=== PATIENT | female | born 1985 | race Two or more races ===

== ENCOUNTER 2024-06-29 14:46 | Emergency (ER) | payer OTHER, MEDICAID, SELFPAY ==
--- NOTE | ~2024-06-29 | CT_ITS ---
CLINICAL HISTORY: neck pain CT cervical spine without contrast Comparison: None Findings: Mild multilevel anterolisthesis, degenerative. No fracture. No severe central spinal canal stenosis. No epidural hematoma. Normal thickness of the prevertebral soft tissues. The lung apices are clear. Impression: No acute findings. This document has been electronically signed by: Rosi Dean MD on 06/29/2024 17:36:59
--- NOTE | ~2024-06-29 | CT_ITS ---
CLINICAL HISTORY: headache x2 mo CT head without contrast Comparison: None Findings: No acute hemorrhage. Trace basal ganglia calcifications. No extra-axial fluid collection. No hydrocephalus, mass-effect or herniation. Macias-white differentiation is maintained. White matter is within normal limits for age. No acute orbital pathology. No acute soft tissue abnormality. No fracture. The visualized paranasal sinuses are predominantly clear. The mastoid air cells are clear. Impression: No acute findings. This document has been electronically signed by: Rosi Dean MD on 06/29/2024 17:39:34
[2024-06-29 14:51] VITALS: BP 135/73; PULSE 92; RESP 19; TEMP 36.6; O2SAT 99; BMI 29.0
--- NOTE | 2024-06-29 14:56 | ECG_ITS ---
Test Reason : L ARM PAIN Blood Pressure : */* mmHG Vent. Rate : 86 BPM Atrial Rate : 86 BPM P-R Int : 128 ms QRS Dur : 86 ms QT Int : 348 ms P-R-T Axes : 52 13 35 degrees QTcB Int : 416 ms Normal sinus rhythm Normal ECG No previous ECGs available Referred By: Nena Warner Electronically Signed By: ARIANNA MURILLO
--- NOTE | 2024-06-29 14:57 | ED.GENADULT ---
HPI - General Adult General Chief complaint: General Medical Stated complaint: Cp, headache, weakness Time Seen by Provider: 06/29/24 18:34 Source: patient Mode of arrival: ambulatory Limitations: no limitations History of Present Illness ED Provider: HPI narrative: Patient is from [place] with increased stress working more than 15 hours a day complaining of poor sleep increased anxiety multiple other complaints with headache neck pain back pain patient has had labs and CT scan of the head and C-spine done prior to my evaluation which were normal Related Data Previous Rx's ?Medication ?Instructions ?Recorded alprazolam 0.5 mg tablet 0.5 mg PO BEDTIME PRN 06/29/24 anxiety/sleep #30 tabs ferrous sulfate 325 mg (65 mg 325 mg PO DAILY #90 tabs 06/29/24 iron) tablet fluoxetine 10 mg capsule (Prozac) 10 mg PO DAILY #30 caps 06/29/24 tramadol 50 mg tablet 50 mg PO Q8-10H PRN pain #30 tabs 06/29/24 Allergies Allergy/AdvReac Type Severity Reaction Status Date / Time cefprozil [From Cefzil] Allergy Rash Verified 06/29/24 14:55 Review of Systems Review of Systems: Yes all other systems are reviewed and are negative [facility] Social History Social History Advance Directives: No Advance Directives Information Provided: No Do you have a plan to hurt others: No Plan Physical Exam ED Vital Signs: Vital Signs - 24 hr 06/29/24 14:51 06/29/24 19:35 Temperature 98 F 98 F Pulse Rate 92 92 Respiratory Rate 19 19 Blood Pressure 135/73 135/73 Pulse Oximetry 99 99 Oxygen Delivery Method Room Air Room Air BMI result Body Mass Index 29.0 Appearance: Alert. Oriented X3. No acute distress. Anxious Eyes: PERRLA, No Nystagmus ENT: Pharynx normal. Oral Mucosa moist Neck: Normal inspection. Neck supple. Upper back tenderness no midline tenderness CVS: Normal heart rate and rhythm. Pulses normal. Respiratory: No respiratory distress. Equal air entry bilateral, no wheezing/rales/rhonchi Abdomen: Soft and nontender. Bowel sounds are present, no mass palpable, no CVA tenderness Skin: Skin warm and dry. Normal skin color. Normal skin turgor. Extremities: No lower extremity edema. No calf tenderness Neuro: Oriented X 3. No motor deficit. No sensory deficit.No cerebellar signs , cranial nerves II-XII intact Course Course Course Narrative: This is a Rapid Medical Examination (RME) performed by Miguel Warner PA-C in triage. Full HPI, ROS, assessment and treatment plan per primary provider in the Main ED. 39 yo female hx of gastric sleeve here for eval of headache x2 months. pain radiates into neck and down her left arm. assoc intermittent N/V. has not been medically evaluated for this yet as she only recently established health insurance. Plan: labs, ekg, imaging Medications Administered Discontinued Medications Generic Name Dose Route Start Last Admin Trade Name Freq PRN Reason Stop Dose Admin Lorazepam 1 mg 06/29/24 19:03 06/29/24 19:17 Lorazepam 1 Mg Tablet PO 06/29/24 19:04 1 mg ONCE ONE Administration Tramadol HCl 50 mg 06/29/24 19:03 06/29/24 19:16 Tramadol Hcl 50 Mg Tablet PO 06/29/24 19:04 50 mg ONCE ONE Administration Medical Decision Making Medical Decision Making [facility] Narrative: Patient's anxiety depression sleep sleeping only 1-2 hours per night likely has fibromyalgia multiple other complaints will start on Prozac anxiety and depression, alprazolam for sleep and anxiety and will give a iron tablets and Tramadol for pain Lab Data [facility] Lab Attestation statement: I reviewed the patient's lab results. 06/29/24 15:12 06/29/24 15:12 Labs: Lab Results 06/29/24 Range/Units 15:12 WBC 3.2 L (4.8-10.8) X10*3/uL RBC 5.02 (4.20-5.50) X10*6/uL Hgb 10.7 L (12.0-16.0) g/dl Hct 33.1 L (37.0-47.0) % MCV 65.9 L (80.0-98.0) fL MCH 21.3 L (27.0-33.0) pg MCHC 32.3 (31.0-35.0) g/dl RDW 16.5 H (11.0-16.0) % Plt Count 299 (160-400) X10*3/uL MPV 10.0 (9.4-12.3) fL Immature Gran % (Auto) 0.6 H (0.0-0.4) % Neut % (Auto) 41.3 L (45-73) % Lymph % (Auto) 40.0 (20-40) % [place] % (Auto) 14.4 H (2-11) % Eos % (Auto) 2.8 (0-4) % Baso % (Auto) 0.9 (0-2) % Lymph # (Auto) 1.3 (1.2-4.9) X10*3/uL [place] # (Auto) 0.5 (0.1-1.2) X10*3/uL Eos # (Auto) 0.1 (0.0-0.4) X10*3/uL Baso # (Auto) 0.0 (0.0-0.2) X10*3/uL Abs Immat Gran (auto) 0.02 (0.00-0.03) X10*3/uL Absolute Neuts (auto) 1.3 L (2.0-8.3) x10*3/uL Absolute Nucleated RBC 0.000 (0.0-0.012) X10*3/uL Nucleated RBC % (auto) 0.0 (0.0-0.2) /100WBC Sodium 136 (135-145) mmol/L Potassium 3.8 (3.3-5.1) mmol/L Chloride 107 (96-108) mmol/L Carbon Dioxide 22 (22-29) mmol/L Anion Gap 11 L (12-20) BUN 12 (9-16) mg/dL Creatinine 0.69 (0.5-1.4) mg/dL Estim Creat Clear Calc 114.8 Estimated GFR > 60 Random Glucose 87 (60-115) mg/dL Calcium 8.9 (8.4-10.2) mg/dL Magnesium 2.0 (1.6-2.6) mg/dL Total Bilirubin 0.4 (0.0-1.0) mg/dL AST 26 (5-31) U/L ALT 16 (0-31) U/L Alkaline Phosphatase 43 (39-117) U/L Troponin I High Sens < 2.7 (<3.5-17.0) ng/L Total Protein 7.5 (6.5-8.0) g/dL Albumin 4.0 (3.5-5.0) g/dL Beta HCG, Quant < 2 mIU/mL Influenza Type A (PCR) NEGATIVE (Negative) Influenza Type B (PCR) NEGATIVE (Negative) RSV RNA Qual (PCR) NEGATIVE (Negative) SARS-CoV-2 RNA (RT-PCR) NEGATIVE (Negative) Independent Interpretation I performed an independent interpretation of an: CT Scan Radiology Impression Discussion of test interpretation with radiology: I have reviewed the radiologist's reading. Radiologist Impression: NAD Discharge Plan Discharge Clinical Impression: Anxiety, Fibromyalgia Patient Disposition: Home, Self-Care Instructions: Fibromyalgia (ED), Anxiety (ED) Additional Instructions: Likely have fibromyalgia and increased anxiety/depression from lack of sleep and stress Decreased caffeine intake Take medication as prescribed and follow up with your PCP Prescriptions: New fluoxetine [Prozac] 10 mg capsule 10 mg PO DAILY Qty: 30 0RF alprazolam 0.5 mg tablet 0.5 mg PO BEDTIME PRN (Reason: anxiety/sleep) Qty: 30 0RF tramadol 50 mg tablet 50 mg PO Q8-10H PRN (Reason: pain) Qty: 30 0RF ferrous sulfate 325 mg (65 mg iron) tablet 325 mg PO DAILY Qty: 90 3RF Interventions: ED Discharge Assessment Last Done: 06/29/24 19:35 Discharge Date/Time: 06/29/24 19:36 Print Language: Scottish
[2024-06-29 15:18] LABS: MANUAL DIFF FLAG NO
[2024-06-29 15:24] LABS: Basophils Percent Auto 0.9 % (0-2); Eosinophils Absolute Auto 0.1 X10*3/uL (0.0-0.4); Eosinophils Percent Auto 2.8 % (0-4); Hematocrit 33.1 % (37.0-47.0); Hemoglobin 10.7 g/dl (12.0-16.0); Imm Gran Abs Auto 0.02 X10*3/uL (0.00-0.03); Imm Gran Pct Auto 0.6 % (0.0-0.4); Lymphocytes Absolute Auto 1.3 X10*3/uL (1.2-4.9); Mean Corpuscular HGB Conc 32.3 g/dl (31.0-35.0); Mean Corpuscular Hemoglobin 21.3 pg (27.0-33.0); Mean Corpuscular Volume 65.9 fL (80.0-98.0); Monocytes Absolute Auto 0.5 X10*3/uL (0.1-1.2); Monocytes Percent Auto 14.4 % (2-11); Neutrophils Absolute Auto 1.3 x10*3/uL (2.0-8.3); Neutrophils Percent Auto 41.3 % (45-73); Platelet Count 299 X10*3/uL (160-400); Red Blood Count 5.02 X10*6/uL (4.20-5.50); Red Cell Distribution Width 16.5 % (11.0-16.0); White Blood Count 3.2 X10*3/uL (4.8-10.8)
[2024-06-29 15:41] LABS: HCG Quantitative < 2 mIU/mL; Troponin-I High Sensitivity < 2.7 ng/L (<3.5-17.0)
[2024-06-29 15:48] LABS: Alanine Aminotransferase 16 U/L (0-31); Anion Gap 11 (12-20); Aspartate Amino Transferase 26 U/L (5-31); Bilirubin Total 0.4 mg/dL (0.0-1.0); Blood Urea Nitrogen 12 mg/dL (9-16); Calcium 8.9 mg/dL (8.4-10.2); Carbon Dioxide 22 mmol/L (22-29); Chloride 107 mmol/L (96-108); Creatinine Clr Calc Pharmacy 114.8; Estimated Glomerular Filt Rate > 60; Glucose Random 87 mg/dL (60-115); Potassium 3.8 mmol/L (3.3-5.1); Sodium 136 mmol/L (135-145); Total Protein 7.5 g/dL (6.5-8.0)
[2024-06-29 16:02] LABS: Influenza A PCR NEGATIVE (Negative); Influenza B PCR NEGATIVE (Negative); Resp Syncy Virus RNA Qual PCR NEGATIVE (Negative); SARS COV2 PCR INHOUSE NEGATIVE (Negative)
[2024-06-29 16:10] LABS: Alkaline Phosphatase 43 U/L (39-117)
[2024-06-29] MEDS: traMADoL HCL 50 MG TABLET PO (19:16)
[2024-06-29] MEDS: LORazepam 1 MG TABLET PO (19:17)
[2024-06-29 19:35] VITALS: BP 135/73; PULSE 92; RESP 19; TEMP 36.6; O2SAT 99
== END 2024-06-29 19:36 | disposition home or self-care (01) ==
PROVIDERS: Physician Assistant Medical; Emergency Provider Internal Medicine
DX: M79.7 Fibromyalgia (principal); F41.9 Anxiety disorder, unspecified; R51.9 Headache, unspecified; Z03.818 Encounter for observation for suspected exposure to other biological agents ruled out
CPT/HCPCS: 0241U; 36415; 70450; 72125; 80053; 83735; 84484; 84702; 85025; 93005; 99284

== ENCOUNTER → 2024-06-29 14:56 | Outpatient (BNV) | payer OTHER, MEDICAID, SELFPAY | PROVIDERS: Emergency Provider Internal Medicine; Visit Provider Internal Medicine | DX: M79.602 Pain in left arm (principal) | CPT/HCPCS: 93010 ==

== ENCOUNTER → 2024-06-29 14:57 | Outpatient (BNV) | payer SELFPAY | PROVIDERS: Visit Provider Radiology Diagnostic Radiology | DX: M54.2 Cervicalgia (principal); R51.9 Headache, unspecified | CPT/HCPCS: 70450; 72125 ==

== ENCOUNTER 2024-08-10 21:14 | Emergency (ER) | payer OTHER, MEDICAID, SELFPAY ==
[2024-08-10 21:16] VITALS: BP 125/80; PULSE 85; RESP 18; TEMP 36.9; O2SAT 100; BMI 28.1
--- NOTE | 2024-08-10 21:33 | ED_ITS ---
HPI - Allergic Reaction General Chief complaint: Allergic Reaction Stated complaint: allergic reaction on her face Time Seen by Provider: 08/10/24 21:29 Source: patient Mode of arrival: ambulatory Limitations: no limitations History of Present Illness ED Provider: KATHI MONTGOMERY narrative: 39 yo female with no sig PMH has hx of allergies to oral abx. she has been on augmentin x 3 doses for possible self prescribed dental infection - she then notes she ate chik giovana a and afterwards she is having swelling of cheeks, hives on face and both forearms. She denies oral swelling. complaint: allergic reaction Onset (ago): day(s) (few) Exposure: food and medication Symptoms: rash and itching Severity: mild Treatment prior to arrival: other (allergy medications from [place]) Previous Allergic Reaction History: prior ED visit(s) Related Data Previous Rx's ?Medication ?Instructions ?Recorded alprazolam 0.5 mg tablet 0.5 mg PO BEDTIME PRN 06/29/24 anxiety/sleep #30 tabs ferrous sulfate 325 mg (65 mg 325 mg PO DAILY #90 tabs 06/29/24 iron) tablet fluoxetine 10 mg capsule (Prozac) 10 mg PO DAILY #30 caps 06/29/24 tramadol 50 mg tablet 50 mg PO Q8-10H PRN pain #30 tabs 06/29/24 hydroxyzine HCl 25 mg tablet 25 mg PO TID PRN itching #20 tabs 08/10/24 prednisone 20 mg tablet 40 mg (2 x 20 mg) PO DAILY 4 days 08/10/24 #8 tabs Allergies Allergy/AdvReac Type Severity Reaction Status Date / Time cefprozil [From Cefzil] Allergy Rash Verified 08/10/24 21:20 Review of Systems Review of Systems: Constitutional : No Fever, No Chills ENT/Mouth : no oral swelling, No Hoarseness, No Swallowing Difficulty Eyes: No Eye Pain, No Swelling, No Redness Cardiovascular : No Chest Pain, No SOB Respiratory : No Cough, No Sputum, No Wheezing, No Smoke Exposure, No Dyspnea Gastrointestinal : No Nausea, No Vomiting, No Diarrhea, No abdominal Pain Genitourinary : No Dysuria, No Urinary Frequency, No Hematuria Musculoskeletal : No joint pain, No Myalgias, No Joint Swelling Skin : No Skin Lesions, positive rash Neuro : No Weakness, No Numbness, No Headache All other systems reviewed and are negative [facility] Past Medical History Attestation statement: The following information was validated with the patient. Source: old records reviewed Medical History (Updated 08/10/24 @ 21:37 by Sindhu Luo DO) Dental infection Social History Social History (Updated 08/10/24 @ 21:37 by Sindhu Luo DO) Patient Tobacco Use Status: Never used Tobacco Physical Exam ED Vital Signs: Vital Signs - 24 hr 08/10/24 21:16 Temperature 98.5 F Pulse Rate 85 Respiratory Rate 18 Blood Pressure 125/80 Pulse Oximetry 100 Oxygen Delivery Method Room Air BMI result Body Mass Index 28.1 Appearance: Alert. Oriented X3. No acute distress. Eyes: Pupils equal, round and reactive to light. ENT: Pharynx normal. no swelling in mouth/lips Neck: Normal inspection. Neck supple. small L anterior mobile less than 1cm node CVS: Pulses normal. Respiratory: No respiratory distress. Abdomen: Soft and nontender. Skin: Skin warm and dry. Normal skin color. Hives noted on forearms and both cheek areas red raised Extremities: No lower extremity edema. Neuro: Oriented X 3. No motor deficit. No sensory deficit. CN2-12 intact Medical Decision Making Medical Decision Making MDM Narrative: 39 yo female with prior allergic reaction now with c/o facial hives and itching - at this time she has already stopped augmentin and I see no reason to continue will start on atarax and prednisone. She has no signs of resp issues or oral swelling Differential Diagnosis Differential Diagnoses: The differential diagnosis associated with the presentation includes allergic reaction, med reaction External Record Review External record reviewed: Outpatient record Prescription Management I considered prescription management with: Other Discharge Plan Discharge Clinical Impression: Allergic reaction Qualifiers: Encounter type: initial encounter Qualified Code(s): T78.40XA - Allergy, unspecified, initial encounter Patient Disposition: Home, Self-Care Instructions: General Allergic Reaction (ED) Additional Instructions: return for oral swelling, difficulty breathing or any other concerns will add on another medication for itching you might have to avoid augmentin in the future Prescriptions: New prednisone 20 mg tablet 40 mg PO DAILY 4 Days Qty: 8 0RF hydroxyzine HCl 25 mg tablet 25 mg PO TID PRN (Reason: itching) Qty: 20 0RF No Action fluoxetine [Prozac] 10 mg capsule 10 mg PO DAILY Qty: 30 0RF alprazolam 0.5 mg tablet 0.5 mg PO BEDTIME PRN (Reason: anxiety/sleep) Qty: 30 0RF tramadol 50 mg tablet 50 mg PO Q8-10H PRN (Reason: pain) Qty: 30 0RF ferrous sulfate 325 mg (65 mg iron) tablet 325 mg PO DAILY Qty: 90 3RF Print Language: Kiswahili
[2024-08-10] MEDS: predniSONE 20 MG TABLET 40 MG PO (21:35)
[2024-08-10 21:51] VITALS: BP 125/80; PULSE 85; RESP 18; TEMP 36.9; O2SAT 100
== END 2024-08-10 21:45 | disposition home or self-care (01) ==
LOC: HO.ED 21:44
PROVIDERS: Emergency Provider Emergency Medicine
DX: T78.40XA Allergy, unspecified, initial encounter (principal); X58.XXXA Exposure to other specified factors, initial encounter
CPT/HCPCS: 99282; 99283

== ENCOUNTER 2024-08-21 21:38 | Emergency (ER) | payer OTHER, MEDICAID, SELFPAY ==
--- NOTE | ~2024-08-21 | XR_ITS ---
CLINICAL HISTORY: chest pain 2 view chest x-ray Comparison: None Findings: Lungs are clear without acute infiltrates. No pneumothorax. Heart size normal. No acute bony abnormalities. Impression: No acute processes This document has been electronically signed by: Ming Altman MD on 08/21/2024 22:31:10
[2024-08-21 21:52] VITALS: BP 111/60; PULSE 94; RESP 20; TEMP 36.4; O2SAT 100; BMI 27.5
--- NOTE | 2024-08-21 21:52 | ECG_ITS ---
Test Reason : CHEST PAIN Blood Pressure : */* mmHG Vent. Rate : 90 BPM Atrial Rate : 90 BPM P-R Int : 124 ms QRS Dur : 92 ms QT Int : 354 ms P-R-T Axes : 33 -5 34 degrees QTcB Int : 433 ms Normal sinus rhythm Incomplete right bundle branch block Borderline ECG When compared with ECG of 29-Jun-2024 15:05, No significant change was found Referred By: Generic ED Physician Electronically Signed By: KATHERINE BUCKNER MD
[2024-08-21 22:24] LABS: Red Cell Distribution Width 16.5 % (11.0-16.0); SCAN SMEAR FLAG 1
[2024-08-21 22:26] LABS: Basophils Absolute Auto 0.1 X10*3/uL (0.0-0.2); Basophils Percent Auto 0.6 % (0-2); Eosinophils Absolute Auto 0.2 X10*3/uL (0.0-0.4); Hematocrit 33.8 % (37.0-47.0); Hemoglobin 10.8 g/dl (12.0-16.0); Imm Gran Abs Auto 0.02 X10*3/uL (0.00-0.03); Imm Gran Pct Auto 0.3 % (0.0-0.4); Lymphocytes Absolute Auto 2.9 X10*3/uL (1.2-4.9); Lymphocytes Percent Auto 36.9 % (20-40); MANUAL DIFF FLAG SCAN; Mean Corpuscular Hemoglobin 20.8 pg (27.0-33.0); Mean Corpuscular Volume 65.3 fL (80.0-98.0); Mean Platelet Volume 11.4 fL (9.4-12.3); Monocytes Absolute Auto 0.7 X10*3/uL (0.1-1.2); Monocytes Percent Auto 8.9 % (2-11); Neutrophils Absolute Auto 4.1 x10*3/uL (2.0-8.3); Neutrophils Percent Auto 51.3 % (45-73); Platelet Count 379 X10*3/uL (160-400); Red Blood Count 5.18 X10*6/uL (4.20-5.50)
[2024-08-21 22:28] LABS: PLT ABN DIST 1
[2024-08-21 22:37] LABS: Alanine Aminotransferase 16 U/L (0-31); Alkaline Phosphatase 46 U/L (39-117); Anion Gap 8 (12-20); Aspartate Amino Transferase 18 U/L (5-31); Bilirubin Total 0.2 mg/dL (0.0-1.0); Blood Urea Nitrogen 15 mg/dL (9-16); Calcium 9.2 mg/dL (8.4-10.2); Carbon Dioxide 25 mmol/L (22-29); Chloride 110 mmol/L (96-108); Estimated Glomerular Filt Rate > 60; Glucose Random 72 mg/dL (60-115); Potassium 3.6 mmol/L (3.3-5.1); Sodium 139 mmol/L (135-145); Total Protein 7.4 g/dL (6.5-8.0)
[2024-08-21 22:39] LABS: SLIDE REVIEW VERIFIED
[2024-08-21 22:44] LABS: Troponin-I High Sensitivity < 2.7 ng/L (<3.5-17.0)
[2024-08-21 22:59] LABS: Influenza A PCR NEGATIVE (Negative); Influenza B PCR NEGATIVE (Negative); Resp Syncy Virus RNA Qual PCR NEGATIVE (Negative); SARS COV2 PCR INHOUSE NEGATIVE (Negative)
[2024-08-22 00:29] VITALS: BP 106/55; PULSE 62; RESP 16; O2SAT 96
--- NOTE | 2024-08-22 01:18 | ED_ITS ---
HPI - Chest Pain General Chief Complaint: Chest Pain Stated Complaint: CHEST SWELLING AND NUMBNESS IN LEFT HAND Time Seen by Provider: 08/22/24 00:55 Source: patient Mode of arrival: ambulatory Limitations: no limitations History of Present Illness ED Provider: Dr. Tasha Charles HPI narrative: patient comes to the emergency room complaining of several days of left pain intermittently, patient states that she has left-sided chest pain when she coughs, it has been dry, no fever chills. No significant shortness of breath. Patient states that she believes that there is a bit of swelling over left side of the chest wall. Denies any trauma. Related Data Previous Rx's ?Medication ?Instructions ?Recorded alprazolam 0.5 mg tablet 0.5 mg PO BEDTIME PRN 06/29/24 anxiety/sleep #30 tabs ferrous sulfate 325 mg (65 mg 325 mg PO DAILY #90 tabs 06/29/24 iron) tablet fluoxetine 10 mg capsule (Prozac) 10 mg PO DAILY #30 caps 06/29/24 tramadol 50 mg tablet 50 mg PO Q8-10H PRN pain #30 tabs 06/29/24 hydroxyzine HCl 25 mg tablet 25 mg PO TID PRN itching #20 tabs 08/10/24 prednisone 20 mg tablet 40 mg (2 x 20 mg) PO DAILY 4 days 08/10/24 #8 tabs benzoyl peroxide 5 % topical 1 appl topical DAILY PRN acne #148 08/11/24 cleanser grams pediatric multivitamin no.140-iron 2 tab PO DAILY #60 tabs 08/22/24 fumarate 18 mg iron chewable tablet (Children's Chewable Vitamin Complete) polyethylene glycol 3350 17 17 g PO DAILY PRN constipation 08/22/24 gram/dose oral powder (Miralax) #238 grams Allergies Allergy/AdvReac Type Severity Reaction Status Date / Time cefprozil [From Cefzil] Allergy Rash Verified 08/21/24 21:54 Review of Systems 2 Review of Systems: Constitutional : No Weight loss, No Fever, No Chills, No Night Sweats, Reporting chronic Fatigue, No Malaise ENT/Mouth : No Hearing loss, No Ear Pain, No Nasal Congestion, No Sinus Pain, No Hoarseness, No sore throat, No Rhinorrhea, No Swallowing Difficulty Eyes: No Eye Pain, No Swelling, No Redness, No Foreign Body, No Discharge, No Vision Changes Cardiovascular : Complaining of chest pain on the left side especially with deep breaths. No SOB, No Dyspnea on Exertion, No Orthopnea, No Edema, No Palpitations Respiratory : No Cough, No Sputum, No Wheezing, No Smoke Exposure, No Dyspnea Gastrointestinal : No Nausea, No Vomiting, No Diarrhea, No Constipation, No abdominal Pain, No Hematochezia, No Melena Genitourinary : no irregular bleeding, No Dysuria, No Urinary Frequency, No Hematuria, No Urinary Incontinence, No Urgency, No Flank Pain, No Urinary Flow Changes, No Hesitancy Musculoskeletal : No joint pain, No Myalgias, No Joint Swelling Skin : No Skin Lesions, No rash Neuro : No Weakness, No Numbness, No Paresthesias, No Loss of Consciousness, No Dizziness, No Headache Psych : No Anxiety/Panic, No Depression, No SI/HI/AH/VH, No Social Issues, Heme/Lymph: No Bruising, No Bleeding,No Lymphadenopathy Endocrine : No Polyuria, No Polydipsia, No Temperature Intolerance PMFSH Past Medical History Medical History Anxiety Dental infection Social History Social History (Updated 08/10/24 @ 21:37 by Sindhu Luo DO) Patient Tobacco Use Status: Never used Tobacco Smoked in Last 30 Days: Yes Use of substances other than those prescribed or required for medical reasons: No Advance Directives: No Advance Directives Information Provided: No Patient : No Physical Exam 2 Vital Signs: Vital Signs: Last Vital Signs Temp 98.1 F 08/22/24 01:27 Pulse 62 08/22/24 01:27 Resp 16 08/22/24 01:27 BP 106/55 L 08/22/24 01:27 Pulse Ox 96 08/22/24 01:27 O2 Del Method Room Air 08/22/24 01:27 BMI result Body Mass Index 27.5 Const: Other: Appearance: Alert. Oriented X3. No acute distress. Eyes: Pupils equal, round and reactive to light. ENT: Pharynx normal. Neck: Normal inspection. Neck supple. No lymph nodes noted. No crepitus CVS: Normal heart rate and rhythm. Pulses normal. Normal S1 and S2 reproducible chest pain to palpation in the left. Respiratory: No respiratory distress. Breath sounds normal. No Wheezing. No rales Abdomen: Soft and nontender. No rigidity. No distention. Skin: Skin warm and dry. Normal skin color. Normal skin turgor. Extremities: No lower extremity edema. No Lacerations. No Rash Neuro: Oriented X 3. No motor deficit. No sensory deficit. Moving all extremities. No slurred speech. CN 2 through 12 grossly intact Psych: calm, cooperative, normal affect Medical Decision Making Medical Decision Making MDM Narrative: My interpretation of labs: Patient's white blood cell count within normal limits, patient's hemoglobin 10.8, hematocrit 33.8 no significant can not abnormality in patient's chemistry, troponin negative, serology negative for influenza COVID and RSV. My interpretation of EKG: Normal sinus rhythm, heart rate 90, no ST segment depression or elevation, no T-wave inversion, QTC 433 CXR, no acute abnormality. Patient has reproducible pain to palpation and with deep inspiration. Wells criteria score is 0 heart score 0 patient states that at this time she is asymptomatic. However, patient reports that this is not the 1st time that she has chest pain like this. Patient does not have a PCP. Patient was given information to follow-up with cardiology. Also, it was noted the patient is anemic. Patient states that she is aware but does not take iron because he does not sit well in her stomach. Discussed with the patient to try children's vitamins with iron, sent to the patient's pharmacy and instructed to take it with orange juice overall, it is likely the patient is having pleurisy versus musculoskeletal pain, less likely to be ACS. Patient well-appearing in asymptomatic at this time Differential Diagnosis Differential Diagnoses: The differential diagnosis associated with the presentation includes ( as above) Lab Data 08/21/24 22:17 08/21/24 22:17 Labs: Lab Results 08/21/24 08/21/24 Range/Units 22:16 22:17 WBC 8.0 (4.8-10.8) X10*3/uL RBC 5.18 (4.20-5.50) X10*6/uL Hgb 10.8 L (12.0-16.0) g/dl Hct 33.8 L (37.0-47.0) % MCV 65.3 L (80.0-98.0) fL MCH 20.8 L (27.0-33.0) pg MCHC 32.0 (31.0-35.0) g/dl RDW 16.5 H (11.0-16.0) % Plt Count 379 D (160-400) X10*3/uL MPV 11.4 (9.4-12.3) fL Immature Gran % (Auto) 0.3 (0.0-0.4) % Neut % (Auto) 51.3 (45-73) % Lymph % (Auto) 36.9 (20-40) % [place] % (Auto) 8.9 (2-11) % Eos % (Auto) 2.0 (0-4) % Baso % (Auto) 0.6 (0-2) % Lymph # (Auto) 2.9 (1.2-4.9) X10*3/uL [place] # (Auto) 0.7 (0.1-1.2) X10*3/uL Eos # (Auto) 0.2 (0.0-0.4) X10*3/uL Baso # (Auto) 0.1 (0.0-0.2) X10*3/uL Abs Immat Gran (auto) 0.02 (0.00-0.03) X10*3/uL Absolute Neuts (auto) 4.1 (2.0-8.3) x10*3/uL Absolute Nucleated RBC 0.000 (0.0-0.012) X10*3/uL Nucleated RBC % (auto) 0.0 (0.0-0.2) /100WBC Smear Tech's Comments VERIFIED Sodium 139 (135-145) mmol/L Potassium 3.6 (3.3-5.1) mmol/L Chloride 110 H (96-108) mmol/L Carbon Dioxide 25 (22-29) mmol/L Anion Gap 8 L (12-20) BUN 15 (9-16) mg/dL Creatinine 0.69 (0.5-1.4) mg/dL Estim Creat Clear Calc 112.0 Estimated GFR > 60 Random Glucose 72 (60-115) mg/dL Calcium 9.2 (8.4-10.2) mg/dL Total Bilirubin 0.2 (0.0-1.0) mg/dL AST 18 (5-31) U/L ALT 16 (0-31) U/L Alkaline Phosphatase 46 (39-117) U/L Troponin I High Sens < 2.7 (<3.5-17.0) ng/L Total Protein 7.4 (6.5-8.0) g/dL Albumin 4.0 (3.5-5.0) g/dL Influenza Type A (PCR) NEGATIVE (Negative) Influenza Type B (PCR) NEGATIVE (Negative) RSV RNA Qual (PCR) NEGATIVE (Negative) SARS-CoV-2 RNA (RT-PCR) NEGATIVE (Negative) Scores Heart Score History: -0- slightly suspicious ECG: -0- normal Age: -0- < or = 45 Risk factory: -0- no risk factors known Troponin: -0- < or = normal limit Score: 0 Risk: 1.7% Discharge Plan Discharge Clinical Impression: Atypical chest pain, Pleurisy, Anemia in chronic illness Patient Disposition: Home, Self-Care Instructions: Chest Pain (ED), Pleurisy (ED), Anemia (ED) Additional Instructions: Please follow-up with your primary care physician tomorrow. If you have any worsening or new symptoms, please return to the emergency room or call 911 Prescriptions: New Child Chewable Vitamn Complete 18 mg iron tablet,chewable 2 tab PO DAILY Qty: 60 1RF polyethylene glycol 3350 [Miralax] 17 gram/dose powder 17 g PO DAILY PRN (Reason: constipation) Qty: 238 0RF No Action fluoxetine [Prozac] 10 mg capsule 10 mg PO DAILY Qty: 30 0RF alprazolam 0.5 mg tablet 0.5 mg PO BEDTIME PRN (Reason: anxiety/sleep) Qty: 30 0RF tramadol 50 mg tablet 50 mg PO Q8-10H PRN (Reason: pain) Qty: 30 0RF ferrous sulfate 325 mg (65 mg iron) tablet 325 mg PO DAILY Qty: 90 3RF benzoyl peroxide 5 % cleanser 1 appl topical DAILY PRN (Reason: acne) Qty: 148 0RF prednisone 20 mg tablet 40 mg PO DAILY 4 Days Qty: 8 0RF hydroxyzine HCl 25 mg tablet 25 mg PO TID PRN (Reason: itching) Qty: 20 0RF Referrals: Ben Montes MD [Physician] - 08/26/24 Interventions: ED Discharge Assessment Last Done: 08/22/24 01:27 Print Language: Kittitian
[2024-08-22 01:27] VITALS: BP 106/55; PULSE 62; RESP 16; TEMP 36.7; O2SAT 96
== END 2024-08-22 01:42 | disposition home or self-care (01) ==
PROVIDERS: Emergency Provider Emergency Medicine
DX: R07.89 Other chest pain (principal); R09.1 Pleurisy; D64.9 Anemia, unspecified; Z03.818 Encounter for observation for suspected exposure to other biological agents ruled out
CPT/HCPCS: 0241U; 71046; 80053; 84484; 85025; 93005; 99283; 99284

== ENCOUNTER → 2024-08-21 21:52 | Outpatient (BNV) | payer OTHER, SELFPAY | PROVIDERS: Emergency Provider Emergency Medicine; Visit Provider Internal Medicine Cardiovascular Disease | DX: R07.9 Chest pain, unspecified (principal); I45.19 Other right bundle-branch block; R94.31 Abnormal electrocardiogram [ECG] [EKG] | CPT/HCPCS: 93010 ==

== ENCOUNTER → 2024-08-21 22:00 | Outpatient (BNV) | payer OTHER, SELFPAY | PROVIDERS: Visit Provider Radiology Diagnostic Radiology | DX: R07.9 Chest pain, unspecified (principal) | CPT/HCPCS: 71046 ==